=== PATIENT | female | born 1995 | race Caucasian/White ===

== ENCOUNTER 2021-11-04 23:11 | Emergency (ER) | payer OTHER ==
[~2021-11-04 23:11] MED LIST: AMOXICILLIN500 MG PO; DELSYM30 MG/5 ML PO; FLONASE 0.05% N16 GM; IBUPROFEN600 MG PO; NAPROSYN500 MG PO; PREDNISONE 50 M50 MG PO
== END 2021-11-05 02:23 | disposition home or self-care (01) ==
LOC: ER1 23:11
DX: U07.1 COVID-19 (principal); F17.290 Nicotine dependence, other tobacco product, uncomplicated
CPT/HCPCS: 0240U; 99283